=== PATIENT | female | born 1965 | race African-American/Black ===

== ENCOUNTER 2020-02-06 13:54 | Emergency (ER) | payer OTHER ==
[~2020-02-06] VITALS: Ht 170.2 cm; Wt 80.0 kg
[2020-02-06] MEDS ORDERED: SODIUM CHLORIDE 0.9% 1,000 ML IV ONE (15:20)
[2020-02-06] MEDS ORDERED: MAGNESIUM/ALUMINUM HYDROXIDE/SIMETHICONE 30ML UDC PO STA (15:20)
[2020-02-06] MEDS ORDERED: ONDANSETRON HCL 4MG/2ML INJ IV STA (15:20)
[2020-02-06 16:06] LABS: BASOPHILS % 0.3 % (0.0-2.0); HEMATOCRIT. 42.9 % (36.0-48.0); HEMOGLOBIN. 14.5 g/dL (12.0-16.0); LYMPHOCYTES % 11.6 % (20.0-50.0); MEAN CORPUSCULAR HEMOGLOBIN 27.6 pg (28.0-32.0); MEAN CORPUSCULAR VOLUME 81.5 fL (81.0-99.0); MEAN PLATELET VOLUME 7.6 fl (7.4-10.4); MONOCYTES % 5.4 % (2.0-8.0); NEUTROPHILS % 82.7 % (40.0-76.0); PLATELET 327 x1000/uL (130-400); RED BLOOD CELL COUNT 5.27 mill/uL (4.2-5.4); RED CELL DISTRIBUTION WIDTH 14.5 % (11.6-14.6)
[2020-02-06 16:15] LABS: CHLORIDE 103 mEq/L (98-107)
[2020-02-06] MEDS ORDERED: ACETAMINOPHEN 325MG TABLET PO ONE (16:15)
[2020-02-06 16:18] LABS: PROTHROMBIN TIME 10.8 sec (9.6-11.0)
[2020-02-06 16:20] LABS: ETHANOL BLOOD < 10 mg/dL
[2020-02-06 16:21] LABS: HCG SCREEN NEGATIVE
[2020-02-06 17:20] LABS: CLARITY URINE CLOUDY (CLEAR); COLOR URINE DARK YELLOW (YELLOW); KETONES URINE 2+ (NEGATIVE); LEUKOCYTE ESTERASE URINE TRACE (NEGATIVE); NITRITE URINE POSITIVE (NEGATIVE); OCCULT BLOOD URINE NEGATIVE (NEGATIVE); PH URINE 5.5 (4.5-8.0); PROTEIN URINE 3+ (NEGATIVE)
[2020-02-06 20:56] VITALS: BP 144/82
== END 2020-02-06 21:19 | disposition home or self-care (01) ==
LOC: ER 13:54
DX: R11.2 Nausea with vomiting, unspecified (principal); Z20.828 Contact with and (suspected) exposure to other viral communicable diseases; R50.9 Fever, unspecified; M79.18 Myalgia, other site
CPT/HCPCS: 36415; 71045; 76700; 80053; 80320; 81003; 81025; 83605; 83690; 84484; 84703; 85025; 85610; 96361; 96374; 99285; C9803; J2405; J7030; U0003; G0480